=== PATIENT | male | born 1965 | race Caucasian/White ===

== ENCOUNTER → 2020-12-17 16:08 | Outpatient (CLI) | payer OTHER, BC, SELFPAY ==
[2020-12-17 15:56] VITALS: BMI 29.7
[2020-12-17 18:18] LABS: Alanine Aminotransfer ALT/SGPT 35 U/L (16-61)
[2020-12-17 18:37] LABS: HIV - WCH Non-Reactive (Nonreactive)
[2020-12-19 14:09] LABS: Hepatitis Be Ab Negative (Negative)
[2020-12-20 09:44] LABS: Hepatitis B Core Ab Total Negative (Negative)
== END ==
PROVIDERS: PCP Family Medicine; Referring Provider Physician Assistant Surgical; Visit Provider Physician Assistant Surgical
DX: Z77.21 Contact with and (suspected) exposure to potentially hazardous body fluids (principal)
CPT/HCPCS: 36415; 84460; 86703; 86704; 86707